=== PATIENT | female | born 1975 | race Caucasian/White ===

== ENCOUNTER 2017-05-13 12:26 | Emergency (ER) | payer OTHER ==
[~2017-05-13] VITALS: Ht 167.6 cm; Wt 113.4 kg
[~2017-05-13 12:26] MED LIST: INDERAL20 MG PO; LEVOFLOXACIN500 MG PO
[2017-05-13] MEDS ORDERED: CEPHALEXIN500 M1 PO (13:16)
== END 2017-05-13 14:43 | disposition home or self-care (01) ==
LOC: ED 12:26
DX: S91.115A Laceration without foreign body of left lesser toe(s) without damage to nail, initial encounter (principal); Z88.6 Allergy status to analgesic agent; Z88.5 Allergy status to narcotic agent; W17.2XXA Fall into hole, initial encounter; Y93.01 Activity, walking, marching and hiking; Y92.096 Garden or yard of other non-institutional residence as the place of occurrence of the external cause; Y99.8 Other external cause status